=== PATIENT | male | born 1980 | race Caucasian/White ===

== ENCOUNTER 2017-05-28 17:03 | Emergency (ER) | payer MEDICARE, MEDICAID ==
[~2017-05-28] VITALS: Ht 190.5 cm; Wt 72.6 kg
[2017-05-28 17:24] VITALS: BP 121/86
== END 2017-05-28 20:13 | disposition left against medical advice (07) ==
LOC: ER 17:09
DX: F41.9 Anxiety disorder, unspecified (principal); R42 Dizziness and giddiness; Z53.21 Procedure and treatment not carried out due to patient leaving prior to being seen by health care provider
CPT/HCPCS: 93005

== ENCOUNTER 2017-06-10 15:57 | Emergency (ER) | payer MEDICARE, MEDICAID ==
[~2017-06-10] VITALS: Ht 193 cm; Wt 71.2 kg
[2017-06-10] MEDS ORDERED: HYDROmorphone HCL 2 MG/ML VL IV ONE (16:30)
[2017-06-10] MEDS ORDERED: ONDANSETRON HCL 4 MG/2 ML VIAL IV ONE (16:30)
[2017-06-10 16:34] VITALS: BP 123/72
== END 2017-06-10 16:55 | disposition home or self-care (01) ==
LOC: EDBD 15:57 → ER 16:05
DX: M54.16 Radiculopathy, lumbar region (principal); F17.210 Nicotine dependence, cigarettes, uncomplicated; Z88.6 Allergy status to analgesic agent
CPT/HCPCS: 94761; 96374; 96375; 99284; J1170; J2405